=== PATIENT | female | born 1950 | race Caucasian/White ===

== ENCOUNTER 2017-03-29 09:19 | Day surgery (SDC) | payer MEDICARE, OTHER ==
[~2017-03-29 09:19] MED LIST: ACYCLOVIR400 M1 PO; ADVAIR 25028 BLISTE1 PO; BUPROPION HCL150 M3 PO; CALCIUM 500 +1 EAC9 PO; CELEXA20 M2 PO; COLACE100 M1 PO; FLONASE ALLERG9.9 ML; FOLIC ACID1 M1 PO; KLOR-CON M2020 ME1 PO; LASIX20 M1 PO; LYRICA75 MG/CAP PO; MAGNESIUM250 M2 PO; MONTELUKAST SOD10 M2 PO; MULTIVITAMINS1 EAC6 PO; OMEPRAZOLE40 M2 PO; ONE DAILY FOR1 EAC4 PO; OXYGEN; PLAQUENIL200 M1 PO; PRAVACHOL40 M1 PO; PROAIR HFA8.5 GM INH; SPIRIVA18 MC1 IH; VERAPAMIL ER240 M2 PO; VIIBRYD40 M1 PO; VITAMIN C1000 M1 PO; VITAMIN D-32000 UNI4 PO
[2017-03-29 10:57] LABS: BASO % 0.1 % (0-2); EOS % 0.6 % (0-7); HCT-HEMATOCRIT 38.1 % (34.0-49.0); HGB-HEMOGLOBIN 12.4 gm/dl (12.0-15.5); IMMATURE GRANULOCYTES ABSOLUTE 0.01 tho/cmm (0-0.03); IMMATURE GRANULOCYTES PERCENT 0.1 % (0-0.3); LYMPH % 16.9 % (20-45); LYMPH ABSOLUTE COUNT 1.2 tho/cmm (0.8-4.5); MCH (MEAN CORPUSCULAR HGB) 30.4 pg (28.0-32.0); MCHC MEAN CORPUSCULAR HGB CONC 32.5 % (32.0-36.0); MCV (MEAN CELL VOLUME) 93.4 fl (82.0-96.0); MEAN PLATELET VOLUME 9.6 cmc (9.4-12.4); MONO % 7.6 % (0-12); MONOCYTE ABSOLUTE COUNT 0.5 tho/cmm (0.0-1.2); NEUTROPHIL ABSOLUTE COUNT 5.3 tho/cmm (1.6-8.0); NEUTROPHIL-AUTOMATED 5.3 tho/cmm (1.6-8.0); NEUTROPHILS % 74.7 % (40-80); PLATELET COUNT 359 tho/cmm (150-450); RED BLOOD COUNT 4.08 mil/cmm (4.00-5.20); RED CELL DISTRIBUTION WIDTH 14.2 % (12.4-16.4); WHITE BLOOD COUNT 7.1 tho/cmm (4.0-10.0)
[2017-03-29 10:58] LABS: PROTHROMBIN TIME 11.5 SECONDS (9.0-13.6)
[2017-03-29 11:08] LABS: ANION GAP 12 mmol/L (0-20); BLOOD UREA NITROGEN 16 mg/dl (6-24); CALCIUM 8.5 mg/dl (8.5-10.5); CARBON DIOXIDE-VENOUS 30 mmol/L (22-32); CHLORIDE 104 mmol/l (96-110); CHOLESTEROL 146 mg/dl (120-200); CREATININE 0.76 mg/dl (0.50-1.10); GLUCOSE 91 mg/dL (70-110); HDL CHOLESTEROL 58 mg/dl (40-60); LDL CHOLESTEROL 75 mg/dl (0-99); SODIUM 142 mmol/L (135-145); TRIGLYCERIDES 69 mg/dl (<149); VLDL 14 mg/dl (0-30); eGFR VALUE FOR BLACK >90 mL/Min
== END 2017-03-29 19:10 ==
LOC: SHSB 09:19 → CAR1 13:28
PROVIDERS: Internal Medicine Cardiovascular Disease
PROC: 4A023N7 Measurement of Cardiac Sampling and Pressure, Left Heart, Percutaneous Approach (ICD-10-PCS; principal; 2017-03-29)
PROC: B2111ZZ Fluoroscopy of Multiple Coronary Arteries using Low Osmolar Contrast (ICD-10-PCS; 2017-03-29)
DX: R06.00 Dyspnea, unspecified (principal); I10 Essential (primary) hypertension; E78.5 Hyperlipidemia, unspecified; M06.9 Rheumatoid arthritis, unspecified; M32.9 Systemic lupus erythematosus, unspecified; J44.9 Chronic obstructive pulmonary disease, unspecified; K21.9 Gastro-esophageal reflux disease without esophagitis; Z88.1 Allergy status to other antibiotic agents; Z88.5 Allergy status to narcotic agent; Z85.72 Personal history of non-Hodgkin lymphomas; Z87.891 Personal history of nicotine dependence; Z82.49 Family history of ischemic heart disease and other diseases of the circulatory system; Z90.711 Acquired absence of uterus with remaining cervical stump; Z90.49 Acquired absence of other specified parts of digestive tract; Z90.89 Acquired absence of other organs; Z98.890 Other specified postprocedural states
CPT/HCPCS: C1760; C1769; C1887; C1894; J1644; J2250; J3010; J7030; Q9967